=== PATIENT | female | born 1940 | race Caucasian/White ===

== ENCOUNTER 2019-04-08 20:55 | Inpatient (IN) | payer MEDICARE ==
[~2019-04-08] VITALS: Ht 170.2 cm; Wt 119.8 kg
[2019-04-08 22:30] LABS: BASOPHILS % 0.9 % (0.0-2.0); EOSINOPHILS % 0.8 % (0.0-5.0); HEMATOCRIT. 22.6 % (36.0-48.0); LYMPHOCYTES % 24.3 % (20.0-50.0); MEAN CORPUSCULAR HEMOGLOBIN 16.9 pg (28.0-32.0); MEAN CORPUSCULAR VOLUME 60.5 fL (81.0-99.0); MEAN PLATELET VOLUME 8.8 fl (7.4-10.4); MONOCYTES % 11.8 % (2.0-8.0); NEUTROPHILS % 62.2 % (40.0-76.0); PLATELET 377 x1000/uL (130-400); RED BLOOD CELL COUNT 3.74 mill/uL (4.2-5.4)
[2019-04-08 22:32] LABS: HEMOGLOBIN. 6.3 g/dL (12.0-16.0)
[2019-04-08 22:34] LABS: CHLORIDE 111 mEq/L (98-107)
[2019-04-08 22:36] LABS: INR 1.2; PROTHROMBIN TIME 12.6 sec (9.6-11.0)
[2019-04-08 22:45] LABS: PLATELET ESTIMATE NORMAL
[2019-04-08] MEDS ORDERED: DILTIAZEM HCL 5MG/ML 5ML VIAL IV ONE (22:45)
[2019-04-08] MEDS ORDERED: DILTIAZEM HCL 90MG TABLET PO ONE (22:45)
[2019-04-09] VITALS (27 sets, daily range): BP systolic 108–149; BP diastolic 62–105
[2019-04-09] MEDS ORDERED: ONDANSETRON HCL 4MG/2ML INJ IV PRN (01:15)
[2019-04-09] MEDS ORDERED: FUROSEMIDE 40MG/4ML VIAL IVP NR (03:00)
[2019-04-09] MEDS: DILTIAZEM HCL 60MG TABLET PO SCH ×4 (06:44→23:55)
[2019-04-09] MEDS: FUROSEMIDE 40MG/4ML VIAL IVP SCH (09:57)
[2019-04-09] MEDS: POTASSIUM CHLORIDE 20MEQ TABLET SR PO SCH (09:58)
[2019-04-09 16:35] LABS: BASOPHILS % 0.7 % (0.0-2.0); EOSINOPHILS % 1.2 % (0.0-5.0); HEMATOCRIT. 25.2 % (36.0-48.0); HEMOGLOBIN. 7.4 g/dL (12.0-16.0); LYMPHOCYTES % 16.2 % (20.0-50.0); MEAN CORPUSCULAR HEMOGLOBIN 18.7 pg (28.0-32.0); MEAN CORPUSCULAR VOLUME 63.4 fL (81.0-99.0); MEAN PLATELET VOLUME 9.3 fl (7.4-10.4); MONOCYTES % 11.1 % (2.0-8.0); NEUTROPHILS % 70.8 % (40.0-76.0); PLATELET 314 x1000/uL (130-400); RED BLOOD CELL COUNT 3.97 mill/uL (4.2-5.4); RED CELL DISTRIBUTION WIDTH 25.7 % (11.6-14.6)
[2019-04-09 17:00] LABS: CHLORIDE 110 mEq/L (98-107)
[2019-04-09 17:09] LABS: TOTAL IRON BINDING CAPACITY 373 ug/dL (250-450)
[2019-04-10] VITALS (12 sets, daily range): BP systolic 96–146; BP diastolic 57–91
[2019-04-10] MEDS: DILTIAZEM HCL 60MG TABLET PO SCH ×4 (05:58→23:37)
[2019-04-10 07:03] LABS: CHLORIDE 110 mEq/L (98-107)
[2019-04-10 07:06] LABS: EOSINOPHILS % 2.7 % (0.0-5.0); HEMATOCRIT. 25.3 % (36.0-48.0); HEMOGLOBIN. 7.5 g/dL (12.0-16.0); LYMPHOCYTES % 21.2 % (20.0-50.0); MEAN CORPUSCULAR HEMOGLOBIN 18.9 pg (28.0-32.0); MEAN PLATELET VOLUME 8.9 fl (7.4-10.4); NEUTROPHILS % 63.1 % (40.0-76.0); PLATELET 296 x1000/uL (130-400); RED BLOOD CELL COUNT 3.95 mill/uL (4.2-5.4); RED CELL DISTRIBUTION WIDTH 25.4 % (11.6-14.6)
[2019-04-10 07:22] LABS: T4 FREE 1.19 ng/dL (0.76-1.46)
[2019-04-10] MEDS: FUROSEMIDE 40MG/4ML VIAL IVP SCH (08:48)
[2019-04-10] MEDS: POTASSIUM CHLORIDE 20MEQ TABLET SR PO SCH (08:48)
[2019-04-10] MEDS ORDERED: MORPHINE SULFATE 2 MG/ML CPJ (NOT FOR IM USE) IV PRN (15:00)
[2019-04-10] MEDS ORDERED: CLONIDINE 0.1MG TABLET PO PRN (15:00)
[2019-04-10] MEDS ORDERED: IPRATROPIUM/ALBUTEROL 0.5-3(2.5)MG/3ML NEB HHN PRN (15:00)
[2019-04-10] MEDS ORDERED: LORAZEPAM 2MG/ML CPJ IV PRN (15:00)
[2019-04-10] MEDS ORDERED: LACTULOSE 20G/30ML UDC PO PRN (15:00)
[2019-04-10] MEDS ORDERED: POTASSIUM CHLORIDE 20MEQ TABLET SR PO SCH (15:00)
[2019-04-10] MEDS ORDERED: DIPHENHYDRAMINE 50MG/ML VIAL IV PRN (15:00)
[2019-04-10 18:24] LABS: BG CARBOXYHEMOGLOBIN 0.6 % (0.5-1.5); BG DEOXYHEMOGLOBIN 4.6 % (0.0-5.0); BG FRACTION INSPIRED OXYGEN 21; BG HCO3 ACT 22.5 mmol/L (22.0-26.0); BG METHEMOGLOBIN 0.8 % (0.0-1.5); BG OXYGEN SATURATION 95.3 % (92.0-98.5); BG PCO2 32.7 mmHg (35.0-45.0); BG PH 7.455 (7.350-7.450); BG SAMPLE SITE RIGHT BRACHIAL; BG VENT MODE ROOM AIR
[2019-04-10] MEDS: FERROUS SULFATE 325MG TABLET PO SCH (19:15)
[2019-04-10] MEDS ORDERED: FAMOTIDINE 20MG TABLET PO SCH (21:00)
[2019-04-11] VITALS (10 sets, daily range): BP systolic 100–142; BP diastolic 42–78
[2019-04-11] MEDS: DILTIAZEM HCL 60MG TABLET PO SCH ×3 (06:08→18:11)
[2019-04-11 06:48] LABS: BASOPHILS % 1.1 % (0.0-2.0); EOSINOPHILS % 3.2 % (0.0-5.0); HEMATOCRIT. 25.2 % (36.0-48.0); HEMOGLOBIN. 7.9 g/dL (12.0-16.0); LYMPHOCYTES % 31.7 % (20.0-50.0); MEAN CORPUSCULAR HEMOGLOBIN 20.1 pg (28.0-32.0); MEAN CORPUSCULAR VOLUME 64.4 fL (81.0-99.0); MEAN PLATELET VOLUME 9.1 fl (7.4-10.4); MONOCYTES % 11.4 % (2.0-8.0); NEUTROPHILS % 52.6 % (40.0-76.0); PLATELET 266 x1000/uL (130-400); RED BLOOD CELL COUNT 3.91 mill/uL (4.2-5.4); RED CELL DISTRIBUTION WIDTH 26.5 % (11.6-14.6)
[2019-04-11] MEDS: FERROUS SULFATE 325MG TABLET PO SCH (07:20)
[2019-04-11] MEDS: FUROSEMIDE 40MG/4ML VIAL IVP SCH (09:00)
[2019-04-11] MEDS: POTASSIUM CHLORIDE 20MEQ TABLET SR PO SCH (09:16)
[2019-04-11 09:46] LABS: CLARITY URINE TURBID (CLEAR); COLOR URINE YELLOW (YELLOW); KETONES URINE NEGATIVE (NEGATIVE); LEUKOCYTE ESTERASE URINE 2+ (NEGATIVE); NITRITE URINE NEGATIVE (NEGATIVE); OCCULT BLOOD URINE 3+ (NEGATIVE); PROTEIN URINE TRACE (NEGATIVE); SPECIFIC GRAVITY URINE 1.017 (1.005-1.030); UROBILINOGEN URINE 0.2 E.U./dL (0.2-1.0)
[2019-04-11] MEDS ORDERED: FUROSEMIDE 20MG TABLET PO SCH (10:30)
[2019-04-11] MEDS: COLCHICINE 0.6MG TABLET PO SCH ×2 (11:09→18:11)
[2019-04-11] MEDS ORDERED: FERR-71 MT (13:09)
[2019-04-11] MEDS ORDERED: DILT60TA35 MT (13:09)
[2019-04-11] MEDS ORDERED: FURO-151 MT (13:09)
[2019-04-11] MEDS ORDERED: COLC0.6C3 MT (13:09)
== END 2019-04-11 19:20 | disposition home or self-care (01) | DRG 812 ==
LOC: ER 20:55 → 3WST 22:13 → EDBEDREQ 22:23 → EDBEDREQSVC 22:23 → EDBEDREQTM 22:23 → ENRESERV 23:04
PROVIDERS: ADMIT Internal Medicine; ATTEND Internal Medicine
PROC: 30233N1 Transfusion of Nonautologous Red Blood Cells into Peripheral Vein, Percutaneous Approach (ICD-10-PCS; principal; 2019-04-09)
DX: D50.0 Iron deficiency anemia secondary to blood loss (chronic) (principal); E46 Unspecified protein-calorie malnutrition; I31.3 Pericardial effusion (noninflammatory); R17 Unspecified jaundice; D68.59 Other primary thrombophilia; N12 Tubulo-interstitial nephritis, not specified as acute or chronic; Z68.41 Body mass index [BMI] 40.0-44.9, adult; R55 Syncope and collapse; I48.91 Unspecified atrial fibrillation; I83.90 Asymptomatic varicose veins of unspecified lower extremity; I11.9 Hypertensive heart disease without heart failure; G90.8 Other disorders of autonomic nervous system; E87.6 Hypokalemia; R74.0 Nonspecific elevation of levels of transaminase and lactic acid dehydrogenase [LDH]; E66.9 Obesity, unspecified; N20.0 Calculus of kidney; K57.90 Diverticulosis of intestine, part unspecified, without perforation or abscess without bleeding; K21.9 Gastro-esophageal reflux disease without esophagitis; R06.03 Acute respiratory distress; E03.9 Hypothyroidism, unspecified; I10 Essential (primary) hypertension; I34.0 Nonrheumatic mitral (valve) insufficiency; J30.1 Allergic rhinitis due to pollen; K44.9 Diaphragmatic hernia without obstruction or gangrene; M17.10 Unilateral primary osteoarthritis, unspecified knee; G43.909 Migraine, unspecified, not intractable, without status migrainosus; E87.70 Fluid overload, unspecified; N81.4 Uterovaginal prolapse, unspecified; N93.9 Abnormal uterine and vaginal bleeding, unspecified; Z79.899 Other long term (current) drug therapy; Z79.01 Long term (current) use of anticoagulants; Z87.891 Personal history of nicotine dependence; Z88.6 Allergy status to analgesic agent
CPT/HCPCS: 36415; 36600; 71045; 71250; 74176; 76700; 76856; 80048; 80076; 81003; 82270; 82375; 82668; 82805; 83540; 83550; 84439; 84443; 84484; 85044; 86304; 86850; 86900; 86920; 93005; 93306; 93970; 96374; 99291; J1940; J2405; J3490; J7040; P9016; P9021